=== PATIENT | female | born 1955 | race Caucasian/White ===

== ENCOUNTER 2018-08-19 00:22 | Outpatient (CLI) | payer BC, SELFPAY ==
--- NOTE | 2018-08-19 08:14 | DI.MAMMO_ITS ---
SYMPTOM/DIAGNOSIS: SCREENING, Z12.31, PERSONAL H/O BREAST CA, Z85.3 MAMMOGRAMS: Mammograms were interpreted according to the usual protocol including computer analysis with CAD system, tomosynthesis and C view imaging. The breast tissue is of moderate radiodensity. There is no evidence of a mass. When compared with previous examinations, again noted is a region of scarring in the upper outer quadrant of the left breast. There are no suspicious calcifications. IMPRESSION: No interval change. No evidence of malignancy. Category 2. Annual screening mammography is recommended. Breast density, Category B. MQSA ASSESSMENT OF FINDINGS: Negative with benign findings. Category 2. Patient will receive a letter notifying them of these results. BI-RADS category B. There are scattered areas of fibroglandular density.
== END 2018-08-19 00:42 ==
PROVIDERS: PCP Nurse Practitioner Family; Visit Provider Nurse Practitioner Family
DX: Z12.31 Encounter for screening mammogram for malignant neoplasm of breast (principal); Z85.3 Personal history of malignant neoplasm of breast
CPT/HCPCS: 77063; 77067

== ENCOUNTER 2019-08-09 11:11 | Outpatient (REF) | payer OTHER, SELFPAY ==
[2019-08-09 12:20] LABS: HCT 40.8 % (36.0-46.0); HGB 13.3 g/dL (12.0-15.5); Mean Corp. HGB Concentration 32.6 g/dL (32.0-36.0); Mean Corpuscular Hemoglobin 30.9 pg (27.0-33.0); Mean Corpuscular Volume 94.7 fL (80-95); Mean Platelet Volume 11.7 fL (8.0-11.0); Platelet Count 281 x1000/uL (130-400); RBC 4.31 m/cumm (4.00-5.20); RBC Distribution Width 12.8 % (11.7-14.6)
[2019-08-09 13:00] LABS: ALT 28 U/L (14-59); AST 25 U/L (15-37); Albumin 3.7 g/dL (3.4-5.0); Alkaline Phosphatase 97 U/L (46-116); Anion Gap 10.5 mmol/L (3-11); BUN 11 mg/dL (7-18); Bilirubin, Total 0.6 mg/dL (0.2-1.0); CO2 26.5 mmol/L (21.0-32.0); CREATININE 0.53 mg/dL (0.55-1.02); Calcium 8.9 mg/dL (8.5-10.1); Calculated LDL 128 mg/dL (<100); Chloride 105 mmol/L (98-107); Cholesterol 257 mg/dL (<200); Glucose 90 mg/dL (74-106); HDL Cholesterol 115 mg/dL (40-60); Sodium 142 mmol/L (136-145); Total Protein 7.2 g/dL (6.4-8.2); Triglyceride 70 mg/dL (<150); Vitamin B12 632 pg/mL (193-986)
[2019-08-09 13:21] LABS: FREE T4 0.88 ng/dL (0.76-1.46)
== END 2019-08-09 11:31 ==
LOC: NCHCN 11:11
PROVIDERS: PCP Nurse Practitioner Family; Visit Provider Nurse Practitioner Family
DX: R20.0 Anesthesia of skin (principal)
CPT/HCPCS: 80053; 80061; 85027; 82607; 84439; 84443

== ENCOUNTER 2020-02-20 01:56 | Outpatient (CLI) | payer OTHER, SELFPAY ==
--- NOTE | 2020-02-20 | DI.MAMMO_ITS ---
EXAM: MG MAMMO SCREENING 60 MIN DUR CLINICAL HISTORY: SCREENING, PERSONAL H/O BREAST CA,Z85.3 TECHNIQUE: Mammograms were interpreted according to the usual protocol including computer analysis w Donay CAD system, tomosynthesis and C-view imaging. COMPARISON: 2010 through 2018 FINDINGS: Exam is limited by suboptimal compression in the left breast. The breasts are composed of scattered fibroglandular densities, Breast Density category B. No suspicious masses or suspicious microcalcifications are seen. Minimal scarring is noted in the up per outer quadrant of the left breast. No skin thickening or abnormal axillary lymph nodes are seen. There has been no significant change from prior exams. IMPRESSION: BI-RADS Category 2 - Benign Findings Yearly screening mammography is recommended. Breast Density - Category B, scattered fibroglandular densities. A negative radiographic report should not delay biopsy if a dominant or clinically suspicious mass is present. Up to ten percent of cancers are not identified on mammography. A negative report may reinforce clinical impression. Adenosis and dense breasts may obscure an underlying neoplasm. False positive reports average 6 to 10%. Patient will receive a letter notifying them of these results.
== END 2020-02-20 02:16 ==
PROVIDERS: PCP Nurse Practitioner Family; Visit Provider Nurse Practitioner Family
DX: Z12.31 Encounter for screening mammogram for malignant neoplasm of breast (principal); Z85.3 Personal history of malignant neoplasm of breast
CPT/HCPCS: 77063; 77067

== ENCOUNTER 2021-08-08 02:46 | Outpatient (CLI) | payer OTHER, SELFPAY ==
--- NOTE | 2021-08-08 | DI.MAMMO_ITS ---
Exam(s) MAMMO SCREENING EXAM: MAMMO SCREENING CLINICAL HISTORY: SCREENING EXAM FOR BREAST CANCER Z12.39. TECHNIQUE: Bilateral full field digital CC and MLO mammographic images were obtained with 3D tomosyn thesis and utilizing computer aided detection (CAD). COMPARISON: Prior mammograms dating back to 2011 were reviewed, the most recent being January 2020 . FINDINGS: There are no CAD designations. There are no new spiculated masses nor malignant appearing microcalcification groups. There is no significant architectural distortion nor skin thickening-retraction. IMPRESSION: No radiographic evidence of malignancy. BI-RADS Category 1 - Negative Breast Density - Category B - Scattered areas of fibroglandular density Breast density Category C or D implies that the patient has dense breast tissue. Dense breast tissue can make it harder to find cancer on a mammogram. Dense breast tissue is also associated with an incr eased risk of breast cancer. This information about the result of the mammogram report was provided to the patient to raise their awareness. Use this report when you speak with the patient about their risks for breast cancer, which includes their family history. At that time, you may recommend additional screening tests (Ultrasoun d or MRI) as these tests may add significant information. A negative radiographic report should not delay biopsy if a dominant or clinically suspicious mass is present. Up to ten percent of cancers are not identified on mammography. A negative report may reinforce clinical impression. Adenosis and dense breasts may obscure an underlying neoplasm. False positive reports average 6 to 10%. Patient will receive a letter notifying them of these results.
== END 2021-08-08 03:06 ==
PROVIDERS: PCP Nurse Practitioner Family; Visit Provider Nurse Practitioner Family
DX: Z12.31 Encounter for screening mammogram for malignant neoplasm of breast (principal)
CPT/HCPCS: 77063; 77067

== ENCOUNTER 2022-01-16 17:43 | Outpatient (REF) | payer MEDICARE, SELFPAY ==
[2022-01-16 19:34] LABS: Abs Immature Grans 0.02 10^3/uL (0.0-0.06); Absolute Basophil Count 0.06 10^3/uL (0.0-0.2); Absolute Eosinophil Count 0.16 10^3/uL (0.0-0.7); Absolute Lymphocyte Count 1.95 10^3/uL (1.2-3.4); Absolute Monocyte Count 0.66 10^3/uL (0.1-0.8); Absolute Neutrophil Count 3.47 10^3/uL (1.2-6.7); Basophils % 0.9; Eosinophils % 2.5; HCT 38.2 % (36.0-46.0); Immature Grans % 0.3; Lymphocytes % 30.9; MCH 31.4 pg (27.0-33.0); MCV 92 fL (80-95); MPV 12.5 fL (8.0-11.0); Monocytes % 10.4; Platelet Count 238 10^3/uL (130-400); RBC 4.14 10^6/uL (3.93-5.22); RDW 12.6 % (11.7-14.6); RDW-SD 42.8 fL; WBC 6.32 10^3/uL (4.4-10.8)
[2022-01-16 19:41] LABS: BUN 18 mg/dL (7-18); CREATININE 0.6 mg/dL (0.55-1.02); Calcium 8.6 mg/dL (8.5-10.1); Chloride 105 mmol/L (98-107); Glucose 94 mg/dL (74-106); Potassium 3.9 mmol/L (3.5-5.1); Sodium 142 mmol/L (136-145)
[2022-01-20 11:11] LABS: Hepatitis C Ab w Rflx HCV PCR Negative (Negative)
== END 2022-01-16 17:44 | disposition home or self-care (01) ==
LOC: NCHCN 17:43
PROVIDERS: PCP Nurse Practitioner Family; Visit Provider Nurse Practitioner Family
DX: L03.114 Cellulitis of left upper limb (principal); Z11.59 Encounter for screening for other viral diseases
CPT/HCPCS: 80048; 86803; 85025

== ENCOUNTER 2022-09-25 01:12 | Outpatient (CLI) | payer MEDICARE, SELFPAY ==
--- NOTE | 2022-09-25 11:07 | DI.MAMMO_ITS ---
Exam(s) MG MAMMO SCREENING 60 MIN DUR EXAM: MG MAMMO SCREENING 60 MIN DUR CLINICAL HISTORY: SCREENING FOR BREAST CANCER Z85.3 PERS HX BREAST CANCER TECHNIQUE: Bilateral full field digital CC and MLO mammographic images were obtained with 3D tomosyn thesis and utilizing computer aided detection (CAD). COMPARISON: Available for comparison. FINDINGS: Masses/Architectural Distortion: None seen. Status post left lumpectomy. Microcalcifications: No suspicious pleomorphic-type are seen. Skin Thickening/Nipple Retraction: None. IMPRESSION: 1. No significant interval change with no specific features of malignancy noted. 2. Unless there is more urgent need, screening mammography is recommended, as per [employer] guidelines. 3. Findings were discussed with the patient on the date of the examination. BI-RADS Category 1 - Negative Breast Density - Category B - Scattered areas of fibroglandular density Breast density category C or D implies that the patient has dense breast tissue. Dense breast tissue is very common and is not abnormal but dense breast tissue can make it harder to find cancer on a ma mmogram. Also, dense breast tissue may increase their breast cancer risk. This information about the result of the mammogram report was provided to the patient to raise their awareness. Use this report when you speak with the patient about their risks for breast cancer, which includes their family hist ory. At that time, you may recommend for more screening tests (Ultrasound or MRI) as they might be us eful based on their risk. A negative radiographic report should not delay biopsy if a dominant or clinically suspicious mass is present. Up to ten percent of cancers are not identified on mammography. A negative report may reinforce clinical impression. Adenosis and dense breasts may obscure an underlying neoplasm. False positive reports average 6 to 10%. Patient will receive a letter notifying them of these results.
== END 2022-09-25 01:32 ==
LOC: DI 01:13
PROVIDERS: Visit Provider Nurse Practitioner Family
DX: Z12.31 Encounter for screening mammogram for malignant neoplasm of breast (principal)
CPT/HCPCS: 77063; 77067

== ENCOUNTER 2023-02-18 16:09 | Outpatient (REF) | payer MEDICARE, SELFPAY ==
[2023-02-18 19:03] LABS: Abs Immature Grans 0.01 10^3/uL (0.0-0.06); Absolute Basophil Count 0.07 10^3/uL (0.0-0.2); Absolute Eosinophil Count 0.23 10^3/uL (0.0-0.7); Absolute Lymphocyte Count 2.04 10^3/uL (1.2-3.4); Absolute Monocyte Count 0.61 10^3/uL (0.1-0.8); Absolute Neutrophil Count 2.94 10^3/uL (1.2-6.7); Basophils % 1.2; Eosinophils % 3.9; HGB 13.4 g/dL (11.2-15.7); Immature Grans % 0.2; Lymphocytes % 34.6; MCH 31.3 pg (27.0-33.0); MCHC 32.7 % (32.0-36.0); MCV 96 fL (80-95); MPV 12.3 fL (8.0-11.0); Monocytes % 10.3; Neutrophils % 49.8; Platelet Count 222 10^3/uL (130-400); RBC 4.28 10^6/uL (3.93-5.22); RDW 12.9 % (11.7-14.6); RDW-SD 45.5 fL
[2023-02-18 19:13] LABS: ALT 22 U/L (14-59); AST 22 U/L (15-37); Albumin 3.8 g/dL (3.4-5.0); Alkaline Phosphatase 86 U/L (46-116); Anion Gap 9.1 mmol/L (3-11); BUN 17 mg/dL (7-18); Bilirubin, Total 0.4 mg/dL (0.2-1.0); CO2 27.9 mmol/L (21.0-32.0); CREATININE 0.8 mg/dL (0.55-1.02); Calcium 9.2 mg/dL (8.5-10.1); Calculated LDL 130 mg/dL (<100); Chloride 101 mmol/L (98-107); Cholesterol 241 mg/dL (<200); Estimated GFR 79.71 (mL/min/1.73m2); Glucose 90 mg/dL (74-106); HDL Cholesterol 101 mg/dL (40-60); Potassium 4.1 mmol/L (3.5-5.1); Sodium 138 mmol/L (136-145); Total Protein 7.4 g/dL (6.4-8.2); Triglyceride 52 mg/dL (<150)
== END 2023-02-18 16:10 | disposition home or self-care (01) ==
LOC: NCHCN 16:09
PROVIDERS: Visit Provider Nurse Practitioner Family
DX: R51.9 Headache, unspecified (principal); R79.89 Other specified abnormal findings of blood chemistry
CPT/HCPCS: 80053; 80061; 85025

== ENCOUNTER 2024-04-14 02:30 | Outpatient (CLI) | payer MEDICARE, SELFPAY ==
--- NOTE | 2024-04-14 06:45 | DI.DEXA_ITS ---
Exam(s) XR DEXA BONE DENSITY W/WO GREGG EXAM: XR DEXA BONE DENSITY W/WO GREGG CLINICAL HISTORY: screening for osteoporosis in postmenopausal status,z78.0 TECHNIQUE: Routine DEXA evaluation of the lumbar spine, hip, or forearm. COMPARISON: No exams were available for comparison FINDINGS: Performed on a Hologic unit. Lateral image: No compression fracture evident. Lumbar Spine total T-score: -1.0 Hip total T-score:-1.9 Independent reading at the level of the femoral neck yields T-score of -1.5 Forearm total T-score: -1.2 IMPRESSION: Bone mineral density measures in the osteopenia range. Fracture risk is moderate. Note: Any spine fracture indicates 5x risk for subsequent spine fracture and 2x risk for subsequent h ip fracture. World Health Organization criteria for BMD interpretation classify patients: Normal...... T- Score at or above -1.0 Osteopenic... T- Score between -1.0 and -2.5 Osteoporosis... T-Score at or below -2.5
--- NOTE | 2024-04-14 11:00 | DI.MAMMO_ITS ---
Exam(s) MG MAMMO SCREENING 60 MIN DUR EXAM: MG MAMMO SCREENING 60 MIN DUR CLINICAL HISTORY: breast cancer screening,personal h/o breast ca,z85.3,z12.39. TECHNIQUE: Bilateral full field digital CC and MLO mammographic images were obtained with 3D tomosyn thesis and utilizing computer aided detection (CAD). COMPARISON: Prior mammograms were reviewed. FINDINGS: There has been no significant change in the appearance and distribution of the fibroglandular tissue. Left breast lumpectomy site remains stable. There are no new spiculated masses nor malignant appearing microcalcification groups. There is no significant architectural distortion nor skin thickening-retraction. IMPRESSION: No radiographic evidence of malignancy. BI-RADS Category 1 - Negative Breast Density - Category B - Scattered areas of fibroglandular density Breast density Category C or D implies that the patient has dense breast tissue. Dense breast tissue can make it harder to find cancer on a mammogram. Dense breast tissue is also associated with an incr eased risk of breast cancer. This information about the result of the mammogram report was provided to the patient to raise their awareness. Use this report when you speak with the patient about their risks for breast cancer, which includes their family history. At that time, you may recommend additional screening tests (Ultrasoun d or MRI) as these tests may add significant information. A negative radiographic report should not delay biopsy if a dominant or clinically suspicious mass is present. Up to ten percent of cancers are not identified on mammography. A negative report may reinforce clinical impression. Adenosis and dense breasts may obscure an underlying neoplasm. False positive reports average 6 to 10%. Patient will receive a letter notifying them of these results.
== END 2024-04-14 02:50 ==
LOC: DI 02:30
PROVIDERS: PCP Nurse Practitioner Family; Visit Provider Nurse Practitioner Family
DX: Z78.0 Asymptomatic menopausal state (principal); Z12.31 Encounter for screening mammogram for malignant neoplasm of breast; Z85.3 Personal history of malignant neoplasm of breast; Z13.820 Encounter for screening for osteoporosis; M81.0 Age-related osteoporosis without current pathological fracture
CPT/HCPCS: 77063; 77067; 77080

== ENCOUNTER 2024-04-14 03:09 | Outpatient (CLI) | payer MEDICARE, SELFPAY ==
[2024-04-14 09:00] LABS: TSH (W/Ref FT4) 7.11 uIU/mL (0.36-3.74)
[2024-04-14 09:21] LABS: FREE T4 0.83 ng/dL (0.76-1.46)
== END 2024-04-14 03:10 | disposition home or self-care (01) ==
LOC: LBO 03:09
PROVIDERS: PCP Nurse Practitioner Family; Referring Provider Nurse Practitioner Family; Visit Provider Nurse Practitioner Family
DX: R68.89 Other general symptoms and signs (principal)
CPT/HCPCS: 36415; 84439; 84443

== ENCOUNTER 2024-07-01 14:02 | Outpatient (CLI) | payer MEDICARE, SELFPAY ==
--- NOTE | 2024-07-01 11:02 | DI.RAD_ITS ---
Exam(s) XR CHEST 2V PA LATERAL EXAM: XR CHEST 2V PA LATERAL CLINICAL HISTORY: cough, sob, ? pneumonia, R05.9 TECHNIQUE: 2D digital imaging was performed. Two views. COMPARISON: No exams were available for comparison FINDINGS: HEART: Normal size. Aorta: Not dilated. PULMONARY VASCULATURE: Normal. MEDIASTINUM: Unremarkable. LUNGS: The lungs are somewhat hyperinflated. Emphysematous changes greater in the right upper lobe. There is biapical scarring. Question of infiltrate in anterior right upper lobe. PLEURAL SPACE: No pleural effusion or pneumothorax. BONE:Unremarkable for age. SOFT TISSUES: Unremarkable. IMPRESSION: Underlying emphysematous changes and scarring. Question of superimposed anterior right upper lobe in filtrate. DATA REPOSITORY: RADIATION DOSE DELIVERED:
== END 2024-07-01 14:22 ==
LOC: DI 14:02
PROVIDERS: PCP Nurse Practitioner Family; Visit Provider Nurse Practitioner Family
DX: R05.9 Cough, unspecified (principal)
CPT/HCPCS: 71046

== ENCOUNTER 2024-11-30 03:41 | Outpatient (CLI) | payer MEDICARE, SELFPAY ==
[2024-11-30 17:16] LABS: TSH (W/Ref FT4) 2.60 uIU/mL (0.36-3.74)
== END 2024-11-30 03:42 | disposition home or self-care (01) ==
LOC: LBO 03:41
PROVIDERS: PCP Nurse Practitioner Family; Visit Provider Nurse Practitioner Family
DX: R79.89 Other specified abnormal findings of blood chemistry (principal)
CPT/HCPCS: 36415; 84443